=== PATIENT | male | born 1995 | race Hispanic/Latino ===

== ENCOUNTER 2020-01-25 08:41 | Emergency (ER) | payer SELFPAY ==
--- NOTE | 2020-01-25 09:50 | RAD ---
Exam:Left hand 3 views HISTORY: Trauma. Pain. COMPARISON: None FINDINGS: Preserved joint spaces. No fracture, cortical irregularity or radiopaque foreign body. IMPRESSION: No fracture.
[2020-01-25] MEDS ORDERED: Bacitracin 1 PK ONE (09:59)
== END 2020-01-25 10:06 | disposition home or self-care (01) ==
LOC: MADERS 08:41
DX: S61.412A Laceration without foreign body of left hand, initial encounter (principal); F15.10 Other stimulant abuse, uncomplicated; X78.0XXA Intentional self-harm by sharp glass, initial encounter